=== PATIENT | male | born 1985 | race Caucasian/White ===

== ENCOUNTER 2016-10-18 07:45 | Emergency (ER) | payer MEDICAID, OTHER ==
[~2016-10-18] VITALS: Ht 165.1 cm; Wt 81.5 kg
[2016-10-18 07:47] VITALS: Ht 165.1 cm; Wt 81.5 kg
--- NOTE | 2016-10-18 08:12 | ERD ---
ER Documentation Chief Complaint Date/Time DATE: 10/18/16 TIME: 08:09 Chief Complaint right eye pain/redness HPI This is a 31-year-old male who presents to the emergency department today complaining of right eye itchiness and swelling that started 3 days ago. 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 Denies any blurred vision, loss of vision, fevers or chills. ROS All systems reviewed and are negative except as per history of present illness. Medications Home Meds Active Scripts Erythromycin* (Erythromycin* Ophthalmic) 1 Applic Oint, 1 APPLIC RIGHT EYE QID for 7 Days Prov:GENNY GIBSON PA-C 10/18/16 Doxycycline Hyclate* (Doxycycline Hyclate*) 100 Mg Tablet.dr, 100 MG PO BID for 7 Days, TAB Prov:GENNY GIBSON PA-C 10/18/16 Physical Exam Vitals Vital Signs Date Time Temp Pulse Resp B/P Pulse Ox O2 Delivery O2 Flow Rate FiO2 10/18/16 07:47 98.1 73 19 119/76 99 Physical Exam Const: No acute distress Head: Atraumatic Eyes: Right eye with mild conjunctival erythema, swelling upper eyelid and orbital area. EOM intact. PERRLA. ENT: Normal External Ears, Nose and Mouth. Neck: Full range of motion..~ No meningismus. Resp: Clear to auscultation bilaterally Cardio: Regular rate and rhythm, no murmurs Skin: No petechiae or rashes Neur: Awake and alert Psych: Normal Mood and Affect Procedures/MDM This 31-year-old male who presents the emergency department today complaining of some right eye itchiness and swelling that started 3 days ago. On physical exam patient has some mild conjunctival erythema however he does have some swelling around his upper eyelid and lower eye area. I did obtain visual acuity Visual acuity left eye 20/25 Right eye 20/25 Bilateral 2024 Patient is afebrile and otherwise well-appearing. Patient symptoms at this time is consistent with conjunctivitis and likely periorbital vs preseptal cellulitis. Patient EOM is intact and he has very little pain with that. Low suspicion for orbital cellulitis, hyphema, globe rupture, acute narrow angle glaucoma, retinal detachment Patient be given a prescription for erythromycin and doxycycline At this time the patient is stable for discharge and outpatient management. Patient should follow up with their PCP in the next 1-2 days. They may return to the emergency department sooner for any persistent or worsening of symptoms. Patient understood and agreed with the plan. Departure Diagnosis: Primary Impression: Eye problem Condition: EGNNY Watson PA-C Oct 18, 2016 08:12
[2016-10-18] MEDS ORDERED: DOXY100T20 PO (08:42)
[2016-10-18] MEDS ORDERED: ERYTOPOI RIGHT EYE (08:43)
== END 2016-10-18 08:56 | disposition home or self-care (01) ==
LOC: FTE 07:45
DX: H57.11 Ocular pain, right eye (principal); H57.8 Other specified disorders of eye and adnexa
CPT/HCPCS: 99284

== ENCOUNTER 2017-03-13 09:49 | Emergency (ER) | payer MEDICAID ==
[~2017-03-13] VITALS: Ht 167.6 cm; Wt 80.5 kg
[~2017-03-13 09:49] MED LIST: DOXY100T20 PO; ERYTOPOI RIGHT EYE
[2017-03-13 09:51] VITALS: Ht 167.6 cm; Wt 80.5 kg
[2017-03-13] MEDS ORDERED: ERYT1OIN6 LEFT EYE (10:09)
--- NOTE | 2017-03-13 10:14 | ERD ---
ER Documentation Chief Complaint Date/Time DATE: 03/13/17 TIME: 10:12 Chief Complaint rt upper eyelid swelling x2wk, denies pain or itching HPI 31-year-old male presents emergency department complaining of a lesion on the right upper eyelid for the past 2 weeks. Patient denies any tenderness with that he. He denies any itchiness, discharge, vision changes. He denies fever or foreign body ROS All systems reviewed and are negative except as per history of present illness. Medications Home Meds Active Scripts Erythromycin (Erythromycin Opth) 3.5 Gm Oint..gm., 1 APPLIC LEFT EYE QID, #1 Prov:AMELIE PARK PA-C 03/13/17 Erythromycin* (Erythromycin* Ophthalmic) 1 Applic Oint, 1 APPLIC RIGHT EYE QID for 7 Days Prov:GENNY GIBSON PA-C 10/18/16 Doxycycline Hyclate* (Doxycycline Hyclate*) 100 Mg Tablet.dr, 100 MG PO BID for 7 Days, TAB Prov:GENNY GIBSON PA-C 10/18/16 Allergies Allergies: Coded Allergies: No Known Allergy (Unverified , 03/13/17) PMhx/Soc History of Surgery: No Anesthesia Reaction: No Hx Neurological Disorder: No Hx Respiratory Disorders: No Hx Cardiac Disorders: No Hx Psychiatric Problems: No Hx Miscellaneous Medical Probl: No Hx Alcohol Use: Yes (SOCIAL ) Hx Substance Use: No Hx Tobacco Use: No Physical Exam Vitals Vital Signs Date Time Temp Pulse Resp B/P Pulse Ox O2 Delivery O2 Flow Rate FiO2 03/13/17 09:51 97.0 68 18 146/82 99 Physical Exam Const: [] Head: Atraumatic Eyes: Lesion on the right upper eyelid ENT: Normal External Ears, Nose and Mouth. Neck: Full range of motion..~ No meningismus. Resp: Clear to auscultation bilaterally Cardio: Regular rate and rhythm, no murmurs Abd: Soft, non tender, non distended. Normal bowel sounds Skin: No petechiae or rashes Back: No midline or flank tenderness Ext: No cyanosis, or edema Neur: Awake and alert Psych: Normal Mood and Affect Procedures/MDM This is a 31-year-old male presents to emergency department with signs and symptoms most consistent with a chalazion on his right upper eyelid for the past 2 weeks, however he will be empirically treated for a hordeolum with erythromycin ointment. I have discussed with him to do warm compresses for 20 minutes 3 times a day. Discussed with him to follow-up with an custom framing specialist. Discussed return to the ER for any worsening signs or symptoms. He understands and agrees with this plan Departure Diagnosis: Primary Impression: Chalazion Condition: Stable Patient Instructions: Yonatan Allen Referrals: [facility] Hours: Tue - Tue 9:00 AM - 5:00 PM Additional Instructions: Specialist:Usted tiene austen condicin mdica que requiere que justyna a un especialista dentro de los prximos 1-2 [place].POR FAVOR,CON LÓPEZ SEGUIMIENTO DE PRIMARIA PHSICIAN refferal. SI USTED NO TIENE UN MDICO GENERAL Y / O USTED NO PUEDE PAGAR alireza a un mdico,los siguientes mcdowell RECURSOS sido suministrado a usted. ES LÓPEZ RESPONSABILIDAD PARA SER VISTOS POR EL ESPECIALISTA:Visite a lópez m dico maana para un EXAMEN.Regrese a estas instalaciones si no se mejora jovan esperbamos o jovan le dijimos. AMELIE PARK PA-C Mar 13, 2017 10:14
== END 2017-03-13 10:48 | disposition home or self-care (01) ==
LOC: FTE 09:49
DX: H00.11 Chalazion right upper eyelid (principal)
CPT/HCPCS: 99283